=== PATIENT | female | born 1995 | race Caucasian/White ===

== ENCOUNTER 2017-03-12 05:32 | Day surgery (SDC) | payer OTHER ==
[~2017-03-12] VITALS: Ht 154.9 cm; Wt 64.4 kg
[2017-03-12] VITALS (9 sets, daily range): BP systolic 107–139; BP diastolic 61–89; PULSE 60–92; RESP 14–19; O2SAT 99–100
[~2017-03-12 05:32] MED LIST: BUPR100T7 PO; CLIN40GE TP; ESTR1TAB PO; Lactated Ringer's 1,000 ML IV SCH
[2017-03-12] MEDS ORDERED: Propofol 10 mg/mL 20 mL Inj ONE (05:33)
[2017-03-12] MEDS ORDERED: Ondansetron 2 mg/mL 2 mL Inj ONE (05:33)
[2017-03-12] MEDS ORDERED: fentaNYL-PF 50 mCg/mL 2 mL Inj ONE (05:33)
[2017-03-12] MEDS ORDERED: Rocuronium 10 mg/mL 5 mL Inj ONE (05:33)
[2017-03-12] MEDS ORDERED: HYDROmorphone 1 mg/mL Inj ONE (05:33)
[2017-03-12] MEDS ORDERED: CeFAZolin 2 Gm/50 mL D5W IV Premix IV ONE (06:00)
[2017-03-12] MEDS ORDERED: Lactated Ringer's 1,000 ML IV ONE (06:09)
--- NOTE | 2017-03-12 06:45 | PCM.HPANE ---
Patient Data Surgeon Admitting Provider: Attending Provider:Ashok Martin MD Primary Care Physician:Margarita Butler PA-C Other Provider:Deloris Martinezingham Anesthesia Reason for Visit Bilateral Macromastia, Back Pain,Follicular Disord Ht/WT & BMI Height (Feet): 5 Height (Inches): 1.00 Weight (Kilograms): 64.410 Body Mass Index 26.00 Allergies Coded Allergies: No Known Allergies (Unverified , 03/07/17) Past Anesthesia History Anesthesia History: Denies:: Fam Anesthesia Reaction, Fam Malignant Hypertherm Diabetes History Hx Diabetes?: No MRSA MRSA: No Medications Home Meds Incl Beta Narinder: No Reported Medications Drospirenone/Estradiol 0.5-1 mg (Angeliq 0.5-1 mg)1 Each Tablet1 Tablet PO DAILY #1 PACK 03/07/17 Clindamycin Phosphate (Clindagel)40 Ml Gel..ml.1 Applic TP BID #40 ML Ref 0 03/07/17 Bupropion ER (Wellbutrin SR)100 Mg Tablet.er100 Mg PO DAILY Ref 0 03/07/17 History History of ENT Problems?: No HEENT History: Denies:: Abnormal Airway Cataracts Difficult Intubation Dysphagia Glaucoma Hearing Problem Sinus Problem TMJ Denture Type: None Teeth Condition: Within Normal Limits Hx of Heart Problems?: No Cardiovascular History: Denies:: Heart Murmur Hypertension Hx of Respiratory Problem?: No Respiratory History: Denies:: Use of C-PAP Machine Hx Neurologic Problems?: No Hx of GI Problems?: No Hx of Problems?: No Female Hx: Positive for:: Problems with Breasts? (B/L MACROMASTIA=CURRENT PROBLEM) Denies:: Currently Skin History: Positive for:: History Skin Disorders? (C/OF BRA-STRAP GROOVING , FOLLICULITIS) Denies:: Pressure Ulcers Hx Musculoskeletal Problems?: Yes Musculoskeletal History: Denies:: Back Injury (C/OF UPPER BACK & NECK PAIN) Hx of Psycho/Social Problems?: Yes Psycho Social History: Positive for:: Anxiety Hx Depression Hx Surgeries?: No Hx Any Other Health Problems?: No Other History: Denies:: Cancer Endocrine Disease Hospitalization Thyroid Disease History Blood Transfusions: Denies:: Blood Transfusions Hx Diabetes: No Stop/Bang S-Snoring: Do You Snore Loudly: No T-Tired: feel tired, fatigued: No O-Obsered: Observed not breath: No P-Blood Pressure: treated: No B- Body Mass Index > 35 kg/m2: No A- Age over 50: No N- Neck Large Circumference: No G- Gender Male: No SHANNON Total Score: 0 Risk Assessment Category Category 1A: Patient has history of documented sleep apnea, and HAS NOT received any narcotic, sedative or anesthesia administration during this stay. Category 1B: Patient has history of documented sleep apnea, and HAS received any narcotic , sedative or anesthesia administration during this stay Category 2: Patient has SUSPECTED Obstructive Sleep Apnea, and HAS received any narcotic , sedative or anesthesia administration during this stay. Category 3: Patient has SUSPECTED Obstructive Sleep Apnea and HAS NOT received narcotic, sedative or anesthesia administration during this stay. Category 4: Outpatient in Procedural Areas with known sleep apnea or who screen positive for High Risk via the STOP/BANG questionnaire. Exam Exam Vital Signs Vital Signs Date Time Temp Pulse Resp B/P Pulse Ox O2 Delivery O2 Flow Rate FiO2 03/12/17 06:10 36.4 92 17 133/77 99 Room Air General Appearance: Alert, Oriented X3, Cooperative HEENT/AIRWAY: MP 1, Neck Movement (from), Mouth Opening (wnl) Lungs: Clear to Auscultation Heart: Exam Unremarkable Meds/Labs/Diagnostics Admission Meds Current Medications Lactated Ringer's (Lr) 1,000 ml @ ud STK-MED ONCE IV Last administered on 03/12t 06:09; Start 03/12/17 at 06:09; Stop 03/12/17 at 06:10; Status DC Plan Impression Patient chart reviewed, patient interviewed and anesthestic plan with risks, benefits, and alternatives discussed, and informed consent obtained. ASA Physical Status: ASA2 Mod Systemic Disease Anesthetic Plan: GA Bene/Risks/Altern/Consents: Yes HP Complete Prior to Induction: Yes Maciej Wagner MD Mar 12, 2017 06:45
[2017-03-12] MEDS ORDERED: Lactated Ringer's 500 ML IV PRN (07:33)
[2017-03-12] MEDS ORDERED: Lactated Ringer's 1,000 ML IV SCH (07:33)
[2017-03-12] MEDS ORDERED: EPHEDrine Sulfate 50 mg/mL Inj IVPUSH PRN (07:35)
[2017-03-12] MEDS ORDERED: EPHEDrine Sulfate 50 mg/mL Inj IM PRN (07:35)
[2017-03-12] MEDS ORDERED: Atropine 0.4 mg/mL Inj IVPUSH PRN (07:35)
[2017-03-12] MEDS ORDERED: Ondansetron 2 mg/mL 2 mL Inj IVPUSH PRN (07:35)
[2017-03-12] MEDS ORDERED: Dexamethasone 4 mg/mL Inj IVPUSH PRN (07:35)
[2017-03-12] MEDS ORDERED: hydrALAZINE 20 mg/mL Inj IVPUSH PRN (07:35)
[2017-03-12] MEDS ORDERED: HYDROmorphone 1 mg/mL Inj IVPUSH PRN (07:35)
[2017-03-12] MEDS ORDERED: Phenylephrine 10,000 mCg/mL Inj IVPUSH PRN (07:35)
[2017-03-12] MEDS ORDERED: Labetalol 5 mg/mL 4 mL Inj IV PRN (07:35)
[2017-03-12] MEDS ORDERED: hydrOXYzine Inj 50 MG/1 mL SDV IM SCH (07:35)
[2017-03-12] MEDS ORDERED: HYDROcodone-APAP 5-325 mg Tablet PO PRN (09:55)
[2017-03-12] MEDS: fentaNYL-PF 50 mCg/mL 2 mL Inj IVPUSH PRN ×2 (10:30→10:40)
--- NOTE | 2017-03-12 10:56 | PCM.ANEP1 ---
Post Anesthesia PACU Phase 1 Assessment Vital Signs Vital Signs Date Time Temp Pulse Resp B/P Pulse Ox O2 Delivery O2 Flow Rate FiO2 03/12/17 10:35 61 15 124/81 100 03/12/17 10:20 63 16 139/69 100 03/12/17 10:15 63 19 107/64 99 03/12/17 10:10 74 17 108/65 99 Room Air 03/12/17 10:05 36.7 75 15 119/89 99 Room Air 03/12/17 06:10 36.4 92 17 133/77 99 Room Air Anesthetic Administered: GA Level of Alertness: Awake, talking TAYLOR's with Equal Strength: Yes Pain: Yes Nausea or Vomiting: No CV Function & Hydration Stable: Yes Airway Device: Oxygen Delivery: Room Air Lungs: Normal Air Movement PACU Phase 2 Assessment Complications: No Follow up Care: No Patient Instructions Provided: N/A Maciej Wagner MD Mar 12, 2017 10:56
--- NOTE | 2017-03-14 12:41 | PATH ---
SURGICAL PATHOLOGY Attending Physician:Ashok Maritn CASE STATUS: Signed Out PATIENT NAME: SIMON TRAMMELL PID: [id number] : 1995 DATE COLLECTED:03/12/2017 16:22 SPECIMEN: 1: Breast Reduction 2: Breast Reduction CLINICAL HISTORY: 1. RIGHT BREAST TISSUE 2. LEFT BREAST TISSUE FINAL DIAGNOSIS: 1. 2.RIGHT AND LEFT BREAST TISSUE (REDUCTION MAMMOPLASTY): TWO SMALL BENIGN FIBROADENOMAS, LEFT BREAST. BOTH SPECIMENS NEGATIVE FOR SIGNIFICANT ATYPIA AND MALIGNANCY. 732 GRAMS OF TISSUE FROM THE RIGHT. 815 GRAMS OF TISSUE FROM THE LEFT. ICD10 D24.2 GROSS DESCRIPTION: The specimens are received in formalin, labeled with the patient's name, and sublabeled as the following: (1) right breast tissue; (2) left breast tissue. (1) The specimen consists of multiple pieces of breast tissue (732 g, 25.0 x 16.3 x 5.8 cm in aggregate) partially covered by skin (23.4 x 7.2 cm). The breast tissue is fibrofatty with no nodules, masses or lesions identified. The skin is luong-white and unremarkable. Section code: (1A, 1B) breast tissue, surgical device sales representative. (2) The specimen consists of multiple pieces of breast tissue (815 g, 18.8 x 16.7 x 4.5 cm in aggregate) partially covered by skin (17.7 x 11.3 cm). The breast tissue is fibrofatty and contains 2 pale pink solid rubbery possible lymph nodes (1.5 x 1.0 x 0.7 cm and 0.7 x 0.7 x 0.5 cm). No nodules, masses or lesions are identified. The skin is luong-white and unremarkable. Ink code: blue-resection margin. Section code: (2A, 2B) breast tissue, surgical device sales representative; (2C) one lymph node, saline section; (2D) one lymph node, bisected. 03/13/17 JM MICRO DESCRIPTION: See diagnosis. ICD-9 CODES: CPT CODES: 1: 40528 2: 89610 Electronically Signed Out William Kendall MD [facility] Pathology [facility] [place] [address] Technical component performed at [facility], [address], [place], [address]
--- NOTE | 2017-03-14 16:30 | OP ---
[address] [address] OPERATIVE REPORT PATIENT: SIMON TRAMMELL : 1995 MR#: [id number] ADMIT: 03/12/2017 JOB ID: [id number] DATE OF SURGERY: 03/12/2017 PREOPERATIVE DIAGNOSIS(ES): Bilateral symptomatic macromastia. POSTOPERATIVE DIAGNOSIS(ES): Bilateral symptomatic macromastia. PROCEDURE: Bilateral breast reduction. SURGEON: Ashok Martin MD. ELECTRONIC GLUING MACHINE OPERATOR: Jean-Claude Williamson PA-C, who was present for necessary retraction, exposure, and closure. ANESTHESIA: General anesthesia. ESTIMATED BLOOD LOSS: 30 cc. COMPLICATIONS: None apparent. SPECIMEN: Bilateral breast tissue to Pathology. Right side 730 g, left side 790 g. DRAINS: Bilateral #15 round Giles drain, one on each side. INDICATIONS FOR PROCEDURE: This is a 21-year-old female patient with a long history of bilateral symptomatic macromastia that has been refractory to routine management. At this point, bilateral breast reductions are indicated for symptom relief. PROCEDURES AND FINDINGS: The patient was identified in the preoperative area and surgical site was marked. With the patient in sitting position, I marked patient's midline and inframammary fold. A Wide pattern incision was also marked with a new nipple position at 19 cm. The Medina triangle limbs were 8 cm each. The patient was then taken back to the operating room and placed supine on the operating table. Appropriate time-outs were taken. General anesthesia was induced smoothly. With the patient in the supine position. I completed the Wide pattern marking. Patient was then prepped and draped in the usual sterile manner. I first turned my attention to the right breast. Using a 42 mm nipple sizer, a new nipple-areolar complex was marked. Inferior pedicle was then marked, that is 10 cm at the base. Incision was then made with a #10 blade around the new nipple-areolar complex as well as the inferior pedicle. Intervening skin was de-epithelialized. Incision was then was then made around the rest of the [place] pattern marking with a #10 blade. The incisions were then deepened down into the subcutaneous tissue with electrocautery. I then turned my attention to elevating the superior skin flaps. Medially, skin flap was elevated approximately 1.5 cm thick at the skin edge and thickened to approximately 2.5 cm as I approached the chest wall. Superolateral skin flap was elevated just deep to the breast capsule. Once that dissection had been carried down to the chest wall I turned my attention to defining the inferior pedicle. Again incision was deepened around the inferior pedicle down toward the chest while flaring out to capture more perforators. Superiorly, dissection was carried beyond the breast tissue and I followed the posterior breast capsule down to the chest wall. Once the inferior pedicle has been isolated the soft tissue between the pedicle and the superior skin flap was elevated off the chest wall and passed off to Pathology as a specimen. Hemostasis was obtained with electrocautery. The incision was then temporarily stapled together with skin staplers. A new nipple areolar keyhole was then made with a 42 mm nipple sizer centered at 7 cm from the inframammary fold. Incision was made and incised through the skin with a #15 blade. Incision was then deepened through the skin flap removing the keyhole allowing the nipple to be externalized. I then turned my attention to the left breast. Again, a similar reduction was carried out. Nipple-areolar complex was marked with a 42 mm nipple sizer with the nipple under slight stretch. Inferior pedicle was marked. Intervening skin was then de-epithelialized. The superior skin flap was elevated in a similar manner down to the chest wall. Inferior pedicle was defined. Once this has been done, intervening tissue was elevated off the chest wall and passed off to Pathology as a specimen. Hemostasis was obtained with electrocautery. The incision was then temporarily stapled together. Once this has been done, it was noted that the patient had similar breast volume and contour. The left nipple was then externalized. #15 round Giles drains were then obtained and placed into the surgical site exiting at the lateral end of the inframammary incision. The incision was then reapproximated first with a layer of 3-0 Monocryl deep dermal suture, followed by 4-0 Monocryl running subcuticular suture. Breast specimen was passed off and the right side weighed 0.73 kg and the left side 0.79 kg. The patient tolerated the procedure well. Needle count, sponge count, instrument counts were correct at the end of the procedure. The patient was extubated and transported to recovery in a stable condition.
== END 2017-03-12 23:59 | disposition home or self-care (01) ==
LOC: SAS 05:32
PROVIDERS: ATTEND Plastic Surgery
DX: N62 Hypertrophy of breast (principal); M54.9 Dorsalgia, unspecified; L73.9 Follicular disorder, unspecified; F32.9 Major depressive disorder, single episode, unspecified; F41.9 Anxiety disorder, unspecified
CPT/HCPCS: 19318; 93005; J0690; J1170; J2250; J2405; J3010; J7120